=== PATIENT | male | born 1960 | race Caucasian/White ===

== ENCOUNTER 2022-03-06 09:55 | Outpatient (CLI) | payer OTHER, SELFPAY ==
[2022-03-06 14:17] LABS: Albumin* 4.7 g/dL (3.3-5.0); Chloride* 106 mmol/L (96-114)
[2022-03-06 14:18] LABS: Potassium* 4.6 mmol/L (3.6-5.1); Sodium* 141 mmol/L (135-149)
[2022-03-06 14:19] LABS: Cholesterol* 180 mg/dL (90-199)
[2022-03-06 14:20] LABS: Alkaline Phosphatase* 79 U/L (40-150); Aspartate Amino Transferase* 28 U/L (12-35); Bilirubin Total* 0.7 mg/dL (0.1-1.5); Blood Urea Nitrogen* 23 mg/dL (7-30); Carbon Dioxide* 25 mmol/L (20-32); Creatinine* 1.2 mg/dL (0.5-1.5); Estimated Glomerular Filt Rate 68 ml/min; Glucose* 92 mg/dL (60-115); Total Protein* 7.4 g/dL (6.0-8.3)
[2022-03-06 14:21] LABS: Alanine Aminotransferase* 33 U/L (4-50); Calcium* 9.7 mg/dL (8.4-10.6); HDL Cholesterol* 44 mg/dL (>=40); LDL Cholesterol Calculated 118 mg/dL (<100); Triglycerides* 91 mg/dL (40-149)
[2022-03-06 14:29] LABS: Creatinine Urine 140.7 mg/dL
[2022-03-06 14:34] LABS: Microalbumin Creatinine Ratio 0 mg/g (0-30); Microalbumin Urine 1 mg/dL
[2022-03-06 14:41] LABS: PSA Screen* 8.49 ng/mL (0.10-4.00)
== END 2022-03-06 09:56 | disposition home or self-care (01) ==
PROVIDERS: PCP Family Medicine; Visit Provider Family Medicine
DX: E78.5 Hyperlipidemia, unspecified (principal); I10 Essential (primary) hypertension; R97.20 Elevated prostate specific antigen [PSA]; J34.89 Other specified disorders of nose and nasal sinuses; R56.9 Unspecified convulsions
CPT/HCPCS: 80053; 80061; 82043; 82570; 84153

== ENCOUNTER 2023-01-22 13:10 | Outpatient (CLI) | payer OTHER, SELFPAY | END 2023-01-22 13:11 | disposition home or self-care (01) | PROVIDERS: PCP Family Medicine; Visit Provider Physician Assistant Medical | DX: I10 Essential (primary) hypertension (principal); E78.5 Hyperlipidemia, unspecified | CPT/HCPCS: 80053; 80061 ==

== ENCOUNTER 2024-02-10 14:35 | Outpatient (CLI) | payer OTHER, SELFPAY ==
--- OUTSIDE RECORDS SUMMARY | 2024-02-14 18:11 | XMS_ITS | Clinical Summary ---
Author Organization [place] Address [facility] [place] [address] Care Team Providers Care Home Improvement Installer Name Role Phone Clinic, [facility] Primary Care Provider Allergies Active Allergy Reactions Criticality Noted Date Comments Hydrocodone-Acetaminophen 12/09/2014 Medications LISINOPRIL PO Take 10 mg by mouth Active ATORVASTATIN CALCIUM PO Active ondansetron (ZOFRAN ODT) 4 MG ODT tab Take 1 tablet (4 mg) by mouth every 8 hours as needed for nausea 10 tablet 12/31/2016 Active Active Problems No known active problems Resolved Problems Problem Noted Date Diagnosed Date Resolved Date Adhesive capsulitis of left shoulder 01/31/2020 07/07/2020 Cervical pain 03/15/2015 07/07/2020 Pain in joint, lower leg 12/15/2007 Tear of medial meniscus of knee joint 12/10/2007 04/06/2008 Other postprocedural status(V45.89) 12/10/2007 04/06/2008 Social History Tobacco Use Types Packs/Day Years Used Date Smoking Tobacco: Never Alcohol Use Standard Drinks/Week Comments No 0 (1 standard drink = 0.6 oz pur e alcohol) Adolescent Education Answer Date Record ed Getting School Help Needed Not on file 12/14 Sex and Gender Information Value Date Recorded Sex Assigned at Not on file 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 Gender Identity Not on file Sexual Orientation Not on file Last Filed Vital Signs Vital Sign Reading Time Taken Comments Blood Pressure 145/86 12/31/2016 11:41 AM CDT Pulse 78 12/31/2016 11:41 AM CDT Temperature 37 C (98.6 F) 12/31/2016 11:41 AM CDT Respiratory Rate 16 12/31/2016 11:41 AM CDT Oxygen Saturation 100% 12/31/2016 11:41 AM CDT Inhaled Oxygen Concentration - - Weight 78 kg (172 lb) 12/31/2016 8:35 AM CDT Height 177.8 cm (5' 10) 12/31/2016 8:35 AM CDT Body Mass Index 24.68 12/31/2016 8:35 AM CDT Plan of Treatment Not on file Insurance [facility] Care Teams Home Improvement Installer Relationship Specialty Start Date End Date [facility], [address] [address] PCP - General 12/31/16
--- OUTSIDE RECORDS SUMMARY | 2024-02-14 18:11 | XMS_ITS | Referral Summary ---
Author Organization [place] Address [facility] 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 Care Teams Medical Underwriter Relationship Specialty Start Date End Date [facility], [address] [address] PCP - General 12/31/16
== END 2024-02-10 14:36 | disposition home or self-care (01) ==
LOC: NFLDREF 02-14 18:09
PROVIDERS: PCP Physician Assistant Medical; Referring Provider Physician Assistant Medical; Visit Provider Physician Assistant Medical
DX: R97.20 Elevated prostate specific antigen [PSA] (principal); I10 Essential (primary) hypertension; E78.2 Mixed hyperlipidemia; R56.9 Unspecified convulsions; D86.0 Sarcoidosis of lung; Z12.5 Encounter for screening for malignant neoplasm of prostate
CPT/HCPCS: 80053; 80061; 84443; G0103

== ENCOUNTER 2025-02-07 07:30 | Outpatient (CLI) | payer OTHER, SELFPAY | END 2025-02-07 07:31 | disposition home or self-care (01) | LOC: NFLDREF 02-10 09:53 | PROVIDERS: PCP Physician Assistant Medical; Referring Provider Physician Assistant Medical; Visit Provider Physician Assistant Medical | DX: E78.5 Hyperlipidemia, unspecified (principal); E03.8 Other specified hypothyroidism; R97.20 Elevated prostate specific antigen [PSA]; I10 Essential (primary) hypertension | CPT/HCPCS: 80053; 80061; 84439; 84443; G0103 ==